=== PATIENT | male | born 1935 | race Caucasian/White ===

== ENCOUNTER 2018-01-04 19:01 | Inpatient (IN) | payer MEDICARE, BC ==
[~2018-01-04] VITALS: Ht 170.2 cm; Wt 85.0 kg
[2018-01-04 19:50] LABS: BASOPHILS % (AUTO) 0 % (0-1); EOSINOPHILS % (AUTO) 0.3 % (0-6); HEMATOCRIT 53.6 % (42.0-52.0); LYMPHOCYTES # (AUTO) 0.6 X10'3 (1.1-4.8); LYMPHOCYTES % (AUTO) 10.9 % (21-51); MEAN CORPUSCULAR HEMOGLOBIN 33.4 PG (27.0-31.0); MEAN CORPUSCULAR HGB CONC 33.7 % (33.0-36.5); MEAN CORPUSCULAR VOLUME 99.2 FL (78-98); MEAN PLATELET VOLUME 8.1 FL (7.4-10.4); MONOCYTES # (AUTO) 0.2 X10'3 (0-0.9); MONOCYTES % (AUTO) 4.3 % (2-12); NEUTROPHILS # (AUTO) 4.6 X10'3 (1.8-7.7); NEUTROPHILS % (AUTO) 84.5 % (42-75); PLATELET COUNT 127 X10'3 (140-440); RED BLOOD COUNT 5.41 X10'6 (4.70-6.10); WHITE BLOOD COUNT 5.4 X10'3 (4.5-11.0)
[2018-01-04 20:00] LABS: INR 1.2 INR; PARTIAL THROMBOPLASTIN TIME 25 SECONDS (22-32)
[2018-01-04 20:03] LABS: ALANINE AMINOTRANSFERASE 32 U/L (12-78); ALBUMIN/GLOBULIN RATIO 1.1 (1.1-1.5); ALKALINE PHOSPHATASE 72 IU/L (46-116); ANION GAP 10 (8-16); ASPARTATE AMINO TRANSFERASE 31 U/L (10-37); BLOOD UREA NITROGEN 15 MG/DL (7-18); CALCIUM 9.5 MG/DL (8.5-10.1); CHLORIDE 103 MMOL/L (99-107); CREATININE 1.15 MG/DL (0.60-1.10); GLUCOSE 129 MG/DL (70-104); SODIUM 140 MMOL/L (135-145); TOTAL CARBON DIOXIDE 27.5 MMOL/L (24-32); TOTAL PROTEIN 7.6 G/DL (6.4-8.2); eGFR 61 ML/MIN
[2018-01-04] MEDS ORDERED: normal saline 1000ml 1,000 ML IV ONE (20:05)
[2018-01-04 20:29] LABS: D-DIMER 0.54 MG/L FEU (0-0.50)
[2018-01-04] MEDS: diltiazem-NS 100mg/100ml 100 ML IV SCH (20:34)
[2018-01-04] MEDS ORDERED: TEST200V10 IM (20:40)
[2018-01-04] MEDS ORDERED: MEMA10TA PO (20:40)
[2018-01-04] MEDS ORDERED: DONE10TA6 PO (20:40)
[2018-01-04] MEDS ORDERED: normal saline 1000ml 1,000 ML IV SCH (22:29)
[2018-01-04] MEDS ORDERED: diphenhydrAMINE 25mg capsule PO PRN (22:30)
[2018-01-04] MEDS ORDERED: HYDROcodone/acetaminophen 10/325mg tab PO PRN (22:30)
[2018-01-04] MEDS ORDERED: diphenhydrAMINE 50 mg/ml inj IV PRN (22:30)
[2018-01-04] MEDS ORDERED: magnesium hydroxide 30ml (MOM) UD suspension PO PRN (22:30)
[2018-01-04] MEDS ORDERED: HYDROcodone/acetaminophen 5mg/325mg tablet PO PRN (22:30)
[2018-01-04] MEDS ORDERED: acetaminophen 325mg tablet PO PRN ×2 (22:30)
[2018-01-04] MEDS ORDERED: morphine 2 MG/ML inj. syringe IV PRN ×2 (22:30)
[2018-01-04] MEDS ORDERED: bisacodyl 10mg suppository rectal RC PRN (22:30)
[2018-01-04] MEDS ORDERED: mag hydrox/Alum hydrox/simeth 30ml oral suspension PO PRN (22:30)
[2018-01-04] MEDS ORDERED: metoclopramide 5 mg/ml inj IV PRN (22:30)
[2018-01-04] MEDS ORDERED: ondansetron/PF 4mg/2ml inj IV PRN (22:30)
[2018-01-04] MEDS ORDERED: acetaminophen 650mg rectal suppository RC PRN (22:30)
[2018-01-04] MEDS: dextrose 5%-water 1,000 ML IV SCH (22:37)
[2018-01-04 23:00] VITALS: BP 138/92
[2018-01-04 23:24] LABS: MAGNESIUM 2.2 MG/DL (1.5-2.4); PHOSPHORUS 2.4 MG/DL (2.3-4.5)
[2018-01-05] VITALS (10 sets, daily range): BP systolic 114–159; BP diastolic 64–112
[2018-01-05 00:36] LABS: HEMOGLOBIN A1C 5.8 % (4.5-6.2)
[2018-01-05 02:00] LABS: BASOPHILS % (AUTO) 0.4 % (0-1); EOSINOPHILS % (AUTO) 0.7 % (0-6); HEMATOCRIT 52.2 % (42.0-52.0); HEMOGLOBIN 17.4 g/dl (14.0-17.9); LYMPHOCYTES # (AUTO) 0.8 X10'3 (1.1-4.8); LYMPHOCYTES % (AUTO) 14.4 % (21-51); MEAN CORPUSCULAR HEMOGLOBIN 33.1 PG (27.0-31.0); MEAN CORPUSCULAR HGB CONC 33.4 % (33.0-36.5); MEAN CORPUSCULAR VOLUME 99.3 FL (78-98); MEAN PLATELET VOLUME 8.6 FL (7.4-10.4); MONOCYTES # (AUTO) 0.3 X10'3 (0-0.9); MONOCYTES % (AUTO) 6.2 % (2-12); NEUTROPHILS # (AUTO) 4.4 X10'3 (1.8-7.7); NEUTROPHILS % (AUTO) 78.3 % (42-75); PLATELET COUNT 121 X10'3 (140-440); RED BLOOD COUNT 5.26 X10'6 (4.70-6.10); RED CELL DISTRIBUTION WIDTH 15.2 % (11.5-14.5); WHITE BLOOD COUNT 5.6 X10'3 (4.5-11.0)
[2018-01-05 02:01] LABS: ALANINE AMINOTRANSFERASE 33 U/L (12-78); ALBUMIN 3.8 G/DL (3.4-5.0); ALBUMIN/GLOBULIN RATIO 1.2 (1.1-1.5); ALKALINE PHOSPHATASE 63 IU/L (46-116); ANION GAP 7 (8-16); ASPARTATE AMINO TRANSFERASE 27 U/L (10-37); BLOOD UREA NITROGEN 12 MG/DL (7-18); BUN/CREATININE RATIO 11.4 (5.4-32.0); CALCIUM 8.2 MG/DL (8.5-10.1); CHLORIDE 106 MMOL/L (99-107); CREATININE 1.05 MG/DL (0.60-1.10); GLUCOSE 102 MG/DL (70-104); POTASSIUM 3.7 MMOL/L (3.5-5.1); SODIUM 143 MMOL/L (135-145); TOTAL CARBON DIOXIDE 30.1 MMOL/L (24-32); eGFR 68 ML/MIN
[2018-01-05 02:03] LABS: CHOL/HDL RATIO 4.1 (0.00-4.99); CHOLESTEROL 176 MG/DL (0-200); HDL CHOLESTEROL 43 MG/DL (35-60); LDL CHOLESTEROL 127 MG/DL (50-100); TRIGLYCERIDES 64 MG/DL (20-135)
[2018-01-05] MEDS: dextrose 5%-water 1,000 ML IV SCH (05:17)
[2018-01-05] MEDS: diltiazem-NS 100mg/100ml 100 ML IV SCH (06:13)
[2018-01-05] MEDS: aspirin 81mg tab.chew PO SCH (07:33)
[2018-01-05] MEDS: docusate sod 100mg capsule PO SCH ×2 (07:33→20:14)
[2018-01-05] MEDS: pantoprazole 40mg Tablet.DR PO SCH (07:33)
[2018-01-05] MEDS ORDERED: Potassium Cl inj 20 MEQ in normal saline 1000ml 990 ML IV SCH (09:00)
[2018-01-05] MEDS: memantine 5mg tablet PO SCH ×2 (09:23→20:15)
[2018-01-05] MEDS: diltiazem 30mg tablet PO SCH ×3 (09:23→20:14)
[2018-01-05] MEDS: potassium Cl 20mEq in NS 1,000 ML IV SCH ×2 (10:24→20:23)
[2018-01-05] MEDS ORDERED: regadenoson 0.4mg/5ml syringe IV PRN (12:35)
[2018-01-05] MEDS ORDERED: metoprolol tartrate 1mg/ml inj IV PRN (12:35)
[2018-01-05] MEDS ORDERED: nitroGLYCERIN 0.4mg SUBLingual tab SL PRN (12:35)
[2018-01-05] MEDS ORDERED: CAFFEINE CITRATE 60 MG/3 ML injection vial IV PRN (12:35)
[2018-01-05] MEDS: donepezil 5mg tablet PO SCH (20:15)
[2018-01-05] MEDS: temazepam 15mg capsule PO PRN (20:15)
[2018-01-05 20:43] LABS: CLARITY,URINE CLEAR (Clear); COLOR,URINE YELLOW (Yellow); GLUCOSE, URINE NEGATIVE (Neg); KETONES,URINE NEGATIVE (Neg); LEUKOCYTE ESTERASE ,URINE NEGATIVE (Neg); NITRITES, URINE NEGATIVE (Neg); OCCULT BLOOD,URINE NEGATIVE (Neg); PROTEIN,URINE NEGATIVE (Neg); UROBILINOGEN,URINE 0.2 E.U/dL (0.2-1.0)
[2018-01-05 20:44] LABS: UA COLLECTION TYPE CLN CATCH MIDSTREAM
[2018-01-06] VITALS (13 sets, daily range): BP systolic 98–150; BP diastolic 57–94
[2018-01-06] MEDS: temazepam 15mg capsule PO PRN (00:40)
[2018-01-06] MEDS: potassium Cl 20mEq in NS 1,000 ML IV SCH ×2 (00:40→22:06)
[2018-01-06] MEDS: diltiazem 30mg tablet PO SCH ×4 (03:17→22:04)
[2018-01-06 05:46] LABS: BASOPHILS % (AUTO) 0.2 % (0-1); EOSINOPHILS % (AUTO) 0.5 % (0-6); HEMATOCRIT 49.2 % (42.0-52.0); HEMOGLOBIN 16.6 g/dl (14.0-17.9); LYMPHOCYTES # (AUTO) 0.7 X10'3 (1.1-4.8); LYMPHOCYTES % (AUTO) 9.9 % (21-51); MEAN CORPUSCULAR HEMOGLOBIN 33.5 PG (27.0-31.0); MEAN CORPUSCULAR HGB CONC 33.8 % (33.0-36.5); MEAN CORPUSCULAR VOLUME 99.1 FL (78-98); MEAN PLATELET VOLUME 8.4 FL (7.4-10.4); MONOCYTES # (AUTO) 0.4 X10'3 (0-0.9); MONOCYTES % (AUTO) 5.9 % (2-12); NEUTROPHILS # (AUTO) 5.6 X10'3 (1.8-7.7); NEUTROPHILS % (AUTO) 83.5 % (42-75); PLATELET COUNT 130 X10'3 (140-440); RED BLOOD COUNT 4.97 X10'6 (4.70-6.10); RED CELL DISTRIBUTION WIDTH 14.6 % (11.5-14.5); WHITE BLOOD COUNT 6.7 X10'3 (4.5-11.0)
[2018-01-06 06:05] LABS: ALANINE AMINOTRANSFERASE 31 U/L (12-78); ALBUMIN 3.5 G/DL (3.4-5.0); ALBUMIN/GLOBULIN RATIO 1.2 (1.1-1.5); ALKALINE PHOSPHATASE 59 IU/L (46-116); ANION GAP 6 (8-16); ASPARTATE AMINO TRANSFERASE 31 U/L (10-37); BLOOD UREA NITROGEN 12 MG/DL (7-18); BUN/CREATININE RATIO 9.9 (5.4-32.0); CALCIUM 8.1 MG/DL (8.5-10.1); CHLORIDE 106 MMOL/L (99-107); CREATININE 1.21 MG/DL (0.60-1.10); GLUCOSE 118 MG/DL (70-104); POTASSIUM 3.7 MMOL/L (3.5-5.1); SODIUM 142 MMOL/L (135-145); TOTAL CARBON DIOXIDE 29.9 MMOL/L (24-32); TOTAL PROTEIN 6.5 G/DL (6.4-8.2); eGFR 57 ML/MIN
[2018-01-06] MEDS: pantoprazole 40mg Tablet.DR PO SCH (07:24)
[2018-01-06] MEDS: memantine 5mg tablet PO SCH ×2 (07:24→22:04)
[2018-01-06] MEDS: docusate sod 100mg capsule PO SCH ×2 (07:24→22:04)
[2018-01-06] MEDS: aspirin 81mg tab.chew PO SCH (08:53)
[2018-01-06] MEDS ORDERED: regadenoson 0.4mg/5ml syringe IV ONE (09:34)
[2018-01-06] MEDS ORDERED: CAFFEINE CITRATE 60 MG/3 ML injection vial IV ONE (09:34)
[2018-01-06] MEDS ORDERED: metoprolol succinate 25mg (24-HOUR) SR. Tablet PO SCH (13:00)
[2018-01-06] MEDS: atorvastatin 20mg tablet PO SCH (13:41)
[2018-01-06] MEDS: donepezil 5mg tablet PO SCH (22:05)
[2018-01-07] MEDS: diltiazem 30mg tablet PO SCH ×2 (02:42→09:32)
[2018-01-07 03:00] VITALS: BP 161/98
[2018-01-07 05:41] LABS: BASOPHILS % (AUTO) 0.2 % (0-1); EOSINOPHILS % (AUTO) 0.5 % (0-6); HEMATOCRIT 52.8 % (42.0-52.0); HEMOGLOBIN 17.8 g/dl (14.0-17.9); LYMPHOCYTES # (AUTO) 0.9 X10'3 (1.1-4.8); LYMPHOCYTES % (AUTO) 12.2 % (21-51); MEAN CORPUSCULAR HEMOGLOBIN 33.7 PG (27.0-31.0); MEAN CORPUSCULAR HGB CONC 33.7 % (33.0-36.5); MEAN CORPUSCULAR VOLUME 99.9 FL (78-98); MEAN PLATELET VOLUME 8.4 FL (7.4-10.4); MONOCYTES # (AUTO) 0.5 X10'3 (0-0.9); MONOCYTES % (AUTO) 6.4 % (2-12); NEUTROPHILS # (AUTO) 6.1 X10'3 (1.8-7.7); NEUTROPHILS % (AUTO) 80.7 % (42-75); PLATELET COUNT 141 X10'3 (140-440); RED BLOOD COUNT 5.29 X10'6 (4.70-6.10); RED CELL DISTRIBUTION WIDTH 15.1 % (11.5-14.5); WHITE BLOOD COUNT 7.6 X10'3 (4.5-11.0)
[2018-01-07 06:00] VITALS: BP 159/94
[2018-01-07 06:10] LABS: ALANINE AMINOTRANSFERASE 31 U/L (12-78); ALBUMIN 3.8 G/DL (3.4-5.0); ALBUMIN/GLOBULIN RATIO 1.1 (1.1-1.5); ALKALINE PHOSPHATASE 66 IU/L (46-116); ANION GAP 9 (8-16); ASPARTATE AMINO TRANSFERASE 39 U/L (10-37); BILIRUBIN,TOTAL 1.1 MG/DL (0.1-1.0); BLOOD UREA NITROGEN 13 MG/DL (7-18); BUN/CREATININE RATIO 11.9 (5.4-32.0); CHLORIDE 106 MMOL/L (99-107); CREATININE 1.09 MG/DL (0.60-1.10); GLUCOSE 114 MG/DL (70-104); POTASSIUM 3.6 MMOL/L (3.5-5.1); SODIUM 142 MMOL/L (135-145); TOTAL CARBON DIOXIDE 27.5 MMOL/L (24-32); TOTAL PROTEIN 7.2 G/DL (6.4-8.2); eGFR 65 ML/MIN
[2018-01-07] MEDS ORDERED: metoprolol succinate 25mg (24-HOUR) SR. Tablet PO SCH (08:25)
[2018-01-07] MEDS: memantine 5mg tablet PO SCH (09:31)
[2018-01-07] MEDS: docusate sod 100mg capsule PO SCH (09:31)
[2018-01-07] MEDS: aspirin 81mg tab.chew PO SCH (09:31)
[2018-01-07] MEDS: atorvastatin 20mg tablet PO SCH (09:32)
[2018-01-07] MEDS: pantoprazole 40mg Tablet.DR PO SCH (09:32)
[2018-01-07] MEDS ORDERED: METO-395 PO (10:57)
[2018-01-07] MEDS ORDERED: ATOR20TA66 PO (10:57)
[2018-01-07] MEDS ORDERED: ASPI-1265 PO (10:57)
[2018-01-07] MEDS ORDERED: DILT180C95 PO (10:57)
[2018-01-07] MEDS ORDERED: NITR0.4T51 SL (10:57)
== END 2018-01-07 13:23 | disposition home or self-care (01) | DRG 308 ==
LOC: ER 19:01 → ED HOLD 22:29 → PCU 3S 23:06
PROVIDERS: ADMIT Family Medicine; ATTEND Internal Medicine
PROC: 4A02XM4 Measurement of Cardiac Total Activity, External Approach (ICD-10-PCS; principal; 2018-01-06)
PROC: 3E033HZ Introduction of Radioactive Substance into Peripheral Vein, Percutaneous Approach (ICD-10-PCS; 2018-01-06)
DX: I48.91 Unspecified atrial fibrillation (principal); G93.40 Encephalopathy, unspecified; I20.9 Angina pectoris, unspecified; F03.90 Unspecified dementia, unspecified severity, without behavioral disturbance, psychotic disturbance, mood disturbance, and anxiety; D69.6 Thrombocytopenia, unspecified; I65.23 Occlusion and stenosis of bilateral carotid arteries; E78.5 Hyperlipidemia, unspecified; E86.0 Dehydration; H53.2 Diplopia; I10 Essential (primary) hypertension; Z79.82 Long term (current) use of aspirin; Z79.899 Other long term (current) drug therapy
CPT/HCPCS: 36415; 70450; 70544; 70551; 71045; 78452; 80053; 80061; 81003; 83036; 83735; 83880; 84100; 84443; 84484; 85025; 85379; 85610; 85730; 87070; 93005; 93017; 93306; 93880; 96360; 99285; A6258; A9500; J3480; J3490; J7030; J7070